=== PATIENT | male | born 1945 | race Caucasian/White ===

== ENCOUNTER 2018-02-11 05:51 | Inpatient (IN) | payer OTHER ==
[~2018-02-11] VITALS: Ht 172.7 cm; Wt 67.6 kg
[2018-02-11] MEDS ORDERED: BUPIVACAINE/PF-EPI 0.5% 1:200K ONE (06:24)
[2018-02-11] MEDS ORDERED: BACITRACIN 50,000 UNIT ONE (06:24)
[2018-02-11] MEDS ORDERED: THROMBIN 5,000 UNIT VIAL TP ONE (06:24)
[2018-02-11] MEDS ORDERED: LACTATED RINGERS 1,000 ML IV SCH (07:18)
[2018-02-11] MEDS ORDERED: LIDOCAINE-MPF 1%, 2ML INFIL ONE (07:30)
[2018-02-11 07:58] VITALS: BP 174/66
[2018-02-11] MEDS ORDERED: GABA400C PO (08:26)
[2018-02-11] MEDS ORDERED: VITAMIN B 12 (08:26)
[2018-02-11] MEDS ORDERED: TRAZ-136 PO (08:26)
[2018-02-11] MEDS ORDERED: ASPI-496 PO (08:26)
[2018-02-11] MEDS ORDERED: TAMS0.4C2 PO (08:26)
[2018-02-11] MEDS ORDERED: TOPI25TA32 PO (08:26)
[2018-02-11] MEDS ORDERED: IRON PO (08:26)
[2018-02-11] MEDS ORDERED: PANT20TA3 PO (08:26)
[2018-02-11] MEDS ORDERED: AMLO2.5T PO (08:26)
[2018-02-11] MEDS ORDERED: HYDR-3241 PO (08:26)
[2018-02-11] MEDS ORDERED: METO25TA35 PO (08:26)
[2018-02-11] MEDS ORDERED: FURO20TA3 PO (08:26)
[2018-02-11] MEDS ORDERED: [UNRECOGNIZED DRUG - OTHER] PO (08:26)
[2018-02-11] MEDS ORDERED: CLOP75TA52 PO (08:26)
[2018-02-11] MEDS ORDERED: FENTANYL PF 250 MCG/5ML ONE (09:16)
[2018-02-11] MEDS ORDERED: PROPOFOL 100 ML ONE (09:16)
[2018-02-11] MEDS ORDERED: MIDAZOLAM 1 MG/ML, 2ML ONE (09:16)
[2018-02-11] MEDS ORDERED: CEFAZOLIN 1,000 MG ONE ×2 (10:36)
[2018-02-11] MEDS ORDERED: ROCURONIUM 10MG/ML,5ML ONE (10:39)
[2018-02-11] MEDS ORDERED: OXYcodone 5 MG/5 ML ORAL.SOL UDC PO PRN (11:30)
[2018-02-11] MEDS ORDERED: LABETALOL 5MG/ML, 20ML IV PRN (11:30)
[2018-02-11] MEDS ORDERED: ONDANSETRON 2MG/ML, 2ML IV PRN ×2 (11:30→14:30)
[2018-02-11] MEDS ORDERED: ACETAMINOPHEN 325 MG TABLET PO PRN (11:30)
[2018-02-11] MEDS ORDERED: PROMETHAZINE 25 MG/ML, 1ML IV PRN (11:30)
[2018-02-11] MEDS ORDERED: hydrALAzine 20 MG/ML, 1ML IV PRN (11:30)
[2018-02-11] MEDS ORDERED: HYDROmorphone 1 MG/ML, 1ML IV PRN (11:30)
[2018-02-11] MEDS ORDERED: FENTANYL PF 100 MCG/2ML IV PRN (11:30)
[2018-02-11] MEDS ORDERED: MEPERIDINE/PF 25MG/0.5ML IVPush PRN (11:30)
[2018-02-11] MEDS ORDERED: ALBUTEROL/IPRATROPIUM 2.5MG/0.5MG, 3 ML NPPB PRN (11:30)
[2018-02-11] MEDS ORDERED: PROPOFOL 10 MG/ML, 20ML ONE (11:43)
[2018-02-11] MEDS ORDERED: DEXAMETHASONE 4 MG/ML, 1ML ONE ×2 (11:43)
[2018-02-11] MEDS ORDERED: ONDANSETRON 2MG/ML, 2ML ONE (11:43)
[2018-02-11] MEDS ORDERED: NEOSPORIN OINT, 15GM ONE (12:15)
[2018-02-11] MEDS ORDERED: OXYcodone 5 MG/5 ML ORAL.SOL UDC ONE (13:06)
[2018-02-11] MEDS ORDERED: FENTANYL PF 100 MCG/2ML ONE (13:06)
[2018-02-11] MEDS ORDERED: ACETAMINOPHEN 650 MG/20.3 ML UDC ONE (13:06)
[2018-02-11 14:10] VITALS: BP 147/61
[2018-02-11] MEDS ORDERED: DIPHENHYDRAMINE 50 MG/ML, 1ML IVPush PRN (14:30)
[2018-02-11] MEDS ORDERED: BISACODYL 10 MG SUPP PR PRN (14:30)
[2018-02-11] MEDS ORDERED: DIPHENHYDRAMINE 50 MG CAPSULE PO PRN (14:30)
[2018-02-11] MEDS ORDERED: MAGNESIUM HYDROXIDE 8%, 30ML UDC PO PRN (14:30)
[2018-02-11] MEDS ORDERED: DIPHENHYDRAMINE 50 MG/ML, 1ML IM PRN (14:30)
[2018-02-11] MEDS ORDERED: METHOCARBAMOL 1,000 MG in DEXTROSE 5% 100 ML IV ONE (14:30)
[2018-02-11] MEDS ORDERED: PROMETHAZINE 25 MG/ML, 1ML IM PRN (14:30)
[2018-02-11] MEDS ORDERED: morphine SULFATE 10 MG/ML, 1ML IV PRN (14:30)
[2018-02-11] MEDS: NS + 20MEQ KCL 1,000 ML IV SCH (15:16)
[2018-02-11] MEDS: GABAPENTIN 400 MG CAPSULE PO SCH ×2 (18:00→20:15)
[2018-02-11] MEDS: CEFAZOLIN PMX 2GM/50ML 50 ML IVPB SCH (18:15)
[2018-02-11 19:00] VITALS: BP 164/60
[2018-02-11] MEDS ORDERED: LOPERAMIDE 2 MG CAPSULE PO PRN (19:00)
[2018-02-11] MEDS: HYDROcodone/APAP 10/325 MG TABLET PO PRN ×2 (20:15→22:57)
[2018-02-11] MEDS: TRAZODONE 50MG TABLET PO SCH (20:16)
[2018-02-11] MEDS: METHOCARBAMOL 750 MG in DEXTROSE 5% 100 ML IV SCH (22:34)
[2018-02-12] VITALS: BP 185/60
[2018-02-12] MEDS: CEFAZOLIN PMX 2GM/50ML 50 ML IVPB SCH (02:03)
[2018-02-12 03:16] VITALS: BP 183/69
[2018-02-12 05:18] LABS: MEAN CORPUSCULAR HEMOGLOBIN 26.7 pg (27.5-34.5); MEAN CORPUSCULAR HGB CONC 32.4 g/dL (33.2-36.2); MEAN CORPUSCULAR VOLUME 82.5 fL (81-97); MEAN PLATELET VOLUME 6.8 fL (7.4-10.4); PLATELET COUNT 219 x10^3/uL (130-400); RED BLOOD COUNT 3.15 x10^6/uL (4.38-5.82); RED CELL DISTRIBUTION WIDTH 20.4 % (9.4-14.8)
[2018-02-12 05:41] LABS: MD YES
[2018-02-12 05:44] LABS: BAND#(MANUAL) 0.23 x10^3/uL; BANDS%(MANUAL) 3 % (0-7); LYMPH#(MANUAL) 0.75 x10^3/uL (1-3.4); LYMPHS% (MANUAL) 10 % (22-44); MONOS#(MANUAL) 0.15 x10^3/uL (0.3-2.7); MONOS% (MANUAL) 2 % (2-9); SEG#(MANUAL) 6.38 x10^3/uL (1.8-6.8); SEGS% (MANUAL) 85 % (42-75)
[2018-02-12 05:45] LABS: <PLATELET ESTIMATE> ADEQUATE; <PLT MORPHOLOGY> NORMAL PLT MORPH; ANISOCYTOSIS 1+; POLYCHROMASIA 1+
[2018-02-12 05:48] LABS: HYPOCHROMIA 1+; MICROCYTOSIS 1+
[2018-02-12] MEDS: GABAPENTIN 400 MG CAPSULE PO SCH ×5 (06:26→21:34)
[2018-02-12] MEDS: METHOCARBAMOL 750 MG in DEXTROSE 5% 100 ML IV SCH (06:30)
[2018-02-12] MEDS: PANTOPRAZOLE 20MG TABLET PO SCH (08:14)
[2018-02-12] MEDS: NS + 20MEQ KCL 1,000 ML IV SCH ×2 (08:14→17:52)
[2018-02-12 08:35] VITALS: BP 179/61
[2018-02-12] MEDS: SENNA/DOCUSATE TABLET PO SCH (09:00)
[2018-02-12] MEDS: TAMSULOSIN 0.4 MG CAP.ER.24H PO SCH (09:09)
[2018-02-12] MEDS: OXYcodone/APAP 10/325MG TABLET PO PRN ×3 (09:09→19:09)
[2018-02-12] MEDS: CYANOCOBALAMIN 1,000 MCG TABLET PO SCH (09:09)
[2018-02-12] MEDS: AMLODIPINE 2.5 MG TABLET PO SCH (09:10)
[2018-02-12] MEDS: FUROSEMIDE 20 MG TABLET PO SCH (09:10)
[2018-02-12] MEDS: METOPROLOL TARTRATE 25 MG TABLET PO SCH (09:10)
[2018-02-12] MEDS: TOPIRAMATE 25 MG TABLET PO SCH (09:10)
[2018-02-12 13:28] VITALS: BP 156/52
[2018-02-12 20:00] VITALS: BP 154/52
[2018-02-12] MEDS: TRAZODONE 50MG TABLET PO SCH (21:35)
[2018-02-13 02:00] VITALS: BP 176/60
[2018-02-13 02:13] VITALS: BP 164/70
[2018-02-13] MEDS: OXYcodone/APAP 10/325MG TABLET PO PRN (04:38)
[2018-02-13 05:36] LABS: MEAN CORPUSCULAR HGB CONC 32.7 g/dL (33.2-36.2); MEAN CORPUSCULAR VOLUME 82.5 fL (81-97); MEAN PLATELET VOLUME 6.8 fL (7.4-10.4); PLATELET COUNT 236 x10^3/uL (130-400); RED BLOOD COUNT 3.34 x10^6/uL (4.38-5.82); RED CELL DISTRIBUTION WIDTH 20.6 % (9.4-14.8)
[2018-02-13] MEDS: GABAPENTIN 400 MG CAPSULE PO SCH ×5 (06:01→20:13)
[2018-02-13] MEDS: NS + 20MEQ KCL 1,000 ML IV SCH (06:01)
[2018-02-13 06:46] VITALS: BP 173/61
[2018-02-13 07:18] LABS: MD YES
[2018-02-13 07:37] LABS: BAND#(MANUAL) 0.09 x10^3/uL; BANDS%(MANUAL) 1 % (0-7); MONOS#(MANUAL) 0.77 x10^3/uL (0.3-2.7); MONOS% (MANUAL) 9 % (2-9)
[2018-02-13 07:38] LABS: ANISOCYTOSIS 1+; LYMPH#(MANUAL) 1.19 x10^3/uL (1-3.4); LYMPHS% (MANUAL) 14 % (22-44); POLYCHROMASIA 1+; SEG#(MANUAL) 6.46 x10^3/uL (1.8-6.8); SEGS% (MANUAL) 76 % (42-75)
[2018-02-13 07:39] LABS: <PLATELET ESTIMATE> ADEQUATE; <PLT MORPHOLOGY> NORMAL PLT MORPH; HYPOCHROMIA 1+
[2018-02-13 07:40] LABS: TOXIC GRAN 1+
[2018-02-13] MEDS: CYANOCOBALAMIN 1,000 MCG TABLET PO SCH (09:00)
[2018-02-13] MEDS: DIAZEPAM 2 MG TABLET PO SCH ×2 (09:30→17:30)
[2018-02-13] MEDS ORDERED: OXYcodone/APAP 10/325MG TABLET PO PRN (09:34)
[2018-02-13] MEDS: TOPIRAMATE 25 MG TABLET PO SCH (09:44)
[2018-02-13] MEDS: FUROSEMIDE 20 MG TABLET PO SCH (09:44)
[2018-02-13] MEDS: TAMSULOSIN 0.4 MG CAP.ER.24H PO SCH (09:44)
[2018-02-13] MEDS: METOPROLOL TARTRATE 25 MG TABLET PO SCH (09:44)
[2018-02-13] MEDS: SENNA/DOCUSATE TABLET PO SCH (09:45)
[2018-02-13] MEDS: AMLODIPINE 2.5 MG TABLET PO SCH (09:45)
[2018-02-13] MEDS: PANTOPRAZOLE 20MG TABLET PO SCH (09:45)
[2018-02-13 12:41] VITALS: BP 187/67
[2018-02-13 14:51] VITALS: BP 173/62
[2018-02-13] MEDS ORDERED: ALBUTEROL/IPRATROPIUM 2.5MG/0.5MG, 3 ML NPPB PRN (18:30)
[2018-02-13] MEDS: TRAZODONE 50MG TABLET PO SCH (19:35)
[2018-02-13 19:37] VITALS: BP 151/55
[2018-02-13] MEDS: LEVOFLOXACIN 500 MG TABLET PO SCH (20:13)
[2018-02-13] MEDS ORDERED: CEFTRIAXONE 2 GM in SODIUM CHLORIDE 0.9% 50 ML IV SCH (21:00)
[2018-02-13] MEDS ORDERED: METHOCARBAMOL 750 MG TABLET PO SCH (22:30)
[2018-02-13] MEDS: OXYcodone/APAP 5/325MG TABLET PO PRN (23:58)
[2018-02-14 00:08] VITALS: BP 164/59
[2018-02-14] MEDS: DIAZEPAM 2 MG TABLET PO SCH ×3 (00:43→17:55)
[2018-02-14 05:16] LABS: BASOPHILS % (AUTO) 0 % (0-1); EOSINOPHILS # (AUTO) 0.11 x10^3/uL (0-0.4); EOSINOPHILS % (AUTO) 1 % (1-7); LYMPHOCYTES # (AUTO) 0.85 x10^3/uL (1-3.4); LYMPHOCYTES % (AUTO) 10 % (22-44); MD NO; MEAN CORPUSCULAR HEMOGLOBIN 26.4 pg (27.5-34.5); MEAN CORPUSCULAR HGB CONC 32.3 g/dL (33.2-36.2); MEAN CORPUSCULAR VOLUME 81.6 fL (81-97); MEAN PLATELET VOLUME 6.9 fL (7.4-10.4); MONOCYTES % (AUTO) 9 % (2-9); NEUTROPHILS # (AUTO) 7.04 x10^3/uL (1.8-6.8); NEUTROPHILS % (AUTO) 80 % (42-75); PLATELET COUNT 211 x10^3/uL (130-400); RED BLOOD COUNT 3.44 x10^6/uL (4.38-5.82); RED CELL DISTRIBUTION WIDTH 20.7 % (9.4-14.8)
[2018-02-14] MEDS: OXYcodone/APAP 5/325MG TABLET PO PRN ×3 (05:37→20:23)
[2018-02-14] MEDS: GABAPENTIN 400 MG CAPSULE PO SCH ×5 (05:37→20:24)
[2018-02-14 06:47] VITALS: BP 174/64
[2018-02-14] MEDS: METOPROLOL TARTRATE 25 MG TABLET PO SCH (08:33)
[2018-02-14] MEDS: SENNA/DOCUSATE TABLET PO SCH (08:33)
[2018-02-14] MEDS: TAMSULOSIN 0.4 MG CAP.ER.24H PO SCH (08:33)
[2018-02-14] MEDS: AMLODIPINE 2.5 MG TABLET PO SCH (08:33)
[2018-02-14] MEDS: TOPIRAMATE 25 MG TABLET PO SCH (08:33)
[2018-02-14] MEDS: PANTOPRAZOLE 20MG TABLET PO SCH (08:33)
[2018-02-14] MEDS: CYANOCOBALAMIN 1,000 MCG TABLET PO SCH (08:34)
[2018-02-14] MEDS: MAGNESIUM HYDROXIDE 8%, 30ML UDC PO SCH (08:35)
[2018-02-14] MEDS: FUROSEMIDE 20 MG TABLET PO SCH (08:39)
[2018-02-14 11:11] LABS: ANION GAP 9 mmol/L (5-15); CALCIUM 8.5 mg/dL (8.5-10.1); CHLORIDE 102 mmol/L (98-107); CREATININE 1.23 mg/dL (0.7-1.3)
[2018-02-14 14:04] VITALS: BP 134/54
[2018-02-14 18:48] VITALS: BP 134/52
[2018-02-14] MEDS: TRAZODONE 50MG TABLET PO SCH (20:24)
[2018-02-14] MEDS: LEVOFLOXACIN 500 MG TABLET PO SCH (20:24)
[2018-02-15 00:18] VITALS: BP 144/75
[2018-02-15] MEDS: DIAZEPAM 2 MG TABLET PO SCH ×2 (01:17→09:30)
[2018-02-15] MEDS: OXYcodone/APAP 5/325MG TABLET PO PRN ×3 (01:17→08:07)
[2018-02-15 05:35] LABS: BASOPHILS % (AUTO) 0 % (0-1); EOSINOPHILS # (AUTO) 0.17 x10^3/uL (0-0.4); EOSINOPHILS % (AUTO) 2 % (1-7); LYMPHOCYTES # (AUTO) 1.06 x10^3/uL (1-3.4); LYMPHOCYTES % (AUTO) 14 % (22-44); MD NO; MEAN CORPUSCULAR HEMOGLOBIN 26.5 pg (27.5-34.5); MEAN CORPUSCULAR HGB CONC 32.7 g/dL (33.2-36.2); MEAN CORPUSCULAR VOLUME 81.1 fL (81-97); MEAN PLATELET VOLUME 7.2 fL (7.4-10.4); MONOCYTES # (AUTO) 0.63 x10^3/uL (0.2-0.8); MONOCYTES % (AUTO) 8 % (2-9); NEUTROPHILS # (AUTO) 5.73 x10^3/uL (1.8-6.8); NEUTROPHILS % (AUTO) 76 % (42-75); PLATELET COUNT 216 x10^3/uL (130-400); RED BLOOD COUNT 3.27 x10^6/uL (4.38-5.82); RED CELL DISTRIBUTION WIDTH 19.7 % (9.4-14.8)
[2018-02-15] MEDS: GABAPENTIN 400 MG CAPSULE PO SCH ×2 (05:43→10:55)
[2018-02-15 06:35] VITALS: BP 134/64
[2018-02-15] MEDS ORDERED: FUROSEMIDE 20 MG/2 ML IV ONE (07:00)
[2018-02-15] MEDS: AMLODIPINE 2.5 MG TABLET PO SCH (08:07)
[2018-02-15] MEDS: PANTOPRAZOLE 20MG TABLET PO SCH (08:07)
[2018-02-15] MEDS: SENNA/DOCUSATE TABLET PO SCH (08:07)
[2018-02-15] MEDS: TAMSULOSIN 0.4 MG CAP.ER.24H PO SCH (08:08)
[2018-02-15] MEDS: TOPIRAMATE 25 MG TABLET PO SCH (08:08)
[2018-02-15] MEDS: METOPROLOL TARTRATE 25 MG TABLET PO SCH (08:08)
[2018-02-15] MEDS: LEVOFLOXACIN 500 MG TABLET PO SCH (08:09)
[2018-02-15] MEDS: FUROSEMIDE 20 MG TABLET PO SCH (08:09)
[2018-02-15] MEDS: CYANOCOBALAMIN 1,000 MCG TABLET PO SCH (08:10)
[2018-02-15] MEDS: MAGNESIUM HYDROXIDE 8%, 30ML UDC PO SCH (08:10)
[2018-02-15] MEDS ORDERED: ENOXAPARIN 30 MG/0.3 ML SQ SCH (09:00)
[2018-02-15] MEDS ORDERED: OXYC-302 PO (09:56)
[2018-02-15] MEDS ORDERED: TIZA2CAP2 PO (09:59)
[2018-02-15] MEDS ORDERED: DOCU-131 PO (10:12)
[2018-02-15] MEDS ORDERED: ONDA4TAB7 PO (10:12)
[2018-02-15] MEDS ORDERED: BACITRACIN OINT 500U/GM, 15 GM TP PRN (11:30)
== END 2018-02-15 11:40 | disposition home or self-care (01) | DRG 471 ==
LOC: ORIP 05:51 → 4NOR 14:02
PROVIDERS: ADMIT Neurological Surgery; ATTEND Internal Medicine
PROC: 4A11X4G Monitoring of Peripheral Nervous Electrical Activity, Intraoperative, External Approach (ICD-10-PCS; 2018-02-11)
PROC: 0RG20J1 Fusion of 2 or more Cervical Vertebral Joints with Synthetic Substitute, Posterior Approach, Posterior Column, Open Approach (ICD-10-PCS; principal; 2018-02-11 10:00)
DX: M48.02 Spinal stenosis, cervical region (principal); J96.00 Acute respiratory failure, unspecified whether with hypoxia or hypercapnia; G95.9 Disease of spinal cord, unspecified; J44.0 Chronic obstructive pulmonary disease with (acute) lower respiratory infection; J44.1 Chronic obstructive pulmonary disease with (acute) exacerbation; M54.12 Radiculopathy, cervical region; F43.10 Post-traumatic stress disorder, unspecified; I25.10 Atherosclerotic heart disease of native coronary artery without angina pectoris; D64.9 Anemia, unspecified; Z95.5 Presence of coronary angioplasty implant and graft; Z99.81 Dependence on supplemental oxygen; N18.3 Chronic kidney disease, stage 3 (moderate); I70.1 Atherosclerosis of renal artery; F17.210 Nicotine dependence, cigarettes, uncomplicated; Z88.0 Allergy status to penicillin; I12.9 Hypertensive chronic kidney disease with stage 1 through stage 4 chronic kidney disease, or unspecified chronic kidney disease
CPT/HCPCS: 36415; 71045; 71046; 72040; 80048; 82040; 83880; 85025; C1713; J0690; J0696; J1100; J1650; J2250; J2270; J2405; J2704; J3010; J3480; J3490; C1762; J2800; J7120

== ENCOUNTER 2020-11-10 05:27 | Inpatient (IN) | payer OTHER ==
[~2020-11-10] VITALS: Ht 160 cm; Wt 63.7 kg
[2020-11-10] VITALS (8 sets, daily range): BP systolic 127–168; BP diastolic 52–65
[~2020-11-10 05:27] MED LIST: AMLO2.5T5 PO; ASPI-496 PO; CLOP75TA52 PO; DOCU-131 PO; FURO20TA3 PO; GABA400C PO; HYDR-3241 PO; IRON PO; METO25TA35 PO; ONDA4TAB7 PO; OXYC1TAB12 PO; PANT20TA4 PO; TAMS0.4C2 PO; TIZA2CAP2 PO; TOPI25TA32 PO; TRAZ50TA66 PO; VITAMIN B 12; [UNRECOGNIZED DRUG - OTHER] PO
--- NOTE | 2020-11-10 05:29 | NUR ---
CODE CARDIAC ELFEGOD @ 2073 @1309 RECIEVED A CALL (FLAVIA) THAT ALL [employer] DOCS ARE ON THEIR WAY
--- NOTE | 2020-11-10 05:31 | NUR ---
CODE CARDIAC CANCELLED @9244
--- NOTE | 2020-11-10 05:40 | NUR ---
Pt arrives speaking full sentences, laughing and joking, no ST elevation on arrival. Given 50 fentenyl on arrival, asa 325 and ntg 0.4
[2020-11-10] MEDS ORDERED: FENTANYL PF 100 MCG/2ML ONE (05:46)
[2020-11-10 05:50] LABS: BASOPHILS % (AUTO) 3 % (0-1); EOSINOPHILS % (AUTO) 1 % (1-7); LYMPHOCYTES % (AUTO) 16 % (22-44); MEAN CORPUSCULAR HEMOGLOBIN 26.8 pg (27.5-34.5); MEAN CORPUSCULAR HGB CONC 31.9 g/dL (33.2-36.2); MEAN PLATELET VOLUME 6.3 fL (7.4-10.4); MONOCYTES % (AUTO) 10 % (2-9); NEUTROPHILS % (AUTO) 71 % (42-75); PLATELET COUNT 284 x10^3/uL (130-400); RED BLOOD COUNT 2.41 x10^6/uL (4.38-5.82); RED CELL DISTRIBUTION WIDTH 18.2 % (9.4-14.8)
--- NOTE | 2020-11-10 05:50 | NUR ---
C/o increasing in Left arm/chest pain. Verbal order dr duncan for 50 fentenyl IV. PCXR done. 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 Pt usually goes [facility] but due to code cardiac activation diverted here. Labs drawn and sent. Will continue to monitor. NSR no ectopy.
--- NOTE | 2020-11-10 05:52 | NUR ---
Right lower leg 2-3 plus pitting edema.
--- NOTE | 2020-11-10 05:56 | NUR ---
Pt reports having black stools every now and then with some blood. Reported to Dr Sagastume along with hbg. Set up for rectal. VSS.
[2020-11-10] MEDS ORDERED: FENTANYL PF 100 MCG/2ML IVPush ONE (06:00)
[2020-11-10] MEDS ORDERED: SODIUM CHLORIDE FLUSH 10ML SYR IVF ONE (06:00)
[2020-11-10] MEDS ORDERED: MORPHINE SULFATE 4 MG/ML, 1ML IVPush PRN (06:00)
[2020-11-10 06:01] LABS: ALBUMIN 3.1 g/dL (3.4-5.0); ANION GAP 6 mmol/L (5-15); CALCIUM 7.9 mg/dL (8.5-10.1); CHLORIDE 99 mmol/L (98-107); INTERNATIONAL NORMALIZED RATIO 1.03 (0.93-1.1)
--- NOTE | 2020-11-10 06:04 | NUR ---
Lab here for T/S, POC to transfuse. Pt with decrease in CP/arm pain since fentenyl. VSS, NSR no ectopy, no st elevation.
[2020-11-10 06:07] LABS: ALANINE AMINOTRANSFERASE 14 U/L (12-78); ALKALINE PHOSPHATASE 93 U/L (45-117); BILIRUBIN,TOTAL 0.4 mg/dL (0.2-1.0); CREATININE 0.86 mg/dL (0.7-1.3); TOTAL PROTEIN 6.3 g/dL (6.4-8.2); TROPONIN I 0.015 ng/mL (0.000-0.045)
--- NOTE | 2020-11-10 06:11 | NUR ---
Pt with grossly positive stool OB. Pt reports having hx of GIB in past. Pt has 2 large bore IV's. Plan to transfuse. Kailash fischer.
--- NOTE | 2020-11-10 06:23 | NUR ---
Moved with all belongings to room 17. Ultrasound here now.
--- NOTE | 2020-11-10 06:43 | NUR ---
Report to REGGIE Pineda.
--- NOTE | 2020-11-10 07:10 | NUR ---
PT OFF UNIT FOR IMAGING.
[2020-11-10] MEDS ORDERED: OMNIPAQUE 350 MG/ML, 100ML BOTTLE ONE (07:25)
--- NOTE | 2020-11-10 07:34 | NUR ---
PT BACK FROM CT. BLOOD REQUESTED FROM BLOOD BANK.
--- NOTE | 2020-11-10 08:01 | NUR ---
BLOOD INFUSING, ASSISTED PT TO [facility].
[2020-11-10] MEDS ORDERED: NICOTINE 14MG/24 HR PATCH.TD24 ONE (08:20)
[2020-11-10] MEDS ORDERED: NICOTINE 14MG/24 HR PATCH.TD24 TD ONE (08:30)
--- NOTE | 2020-11-10 08:58 | NUR ---
REPORT CALLED TO SANDHYA PAREDES.
[2020-11-10] MEDS ORDERED: CHLORHEXIDINE 15 ML UDC ONE (11:22)
[2020-11-10] MEDS ORDERED: IRON DEXTRAN IV PER PHARMACY IV ONE (11:30)
[2020-11-10] MEDS ORDERED: NITROGLYCERIN 0.4 MG/SPRAY SL PRN (11:30)
[2020-11-10] MEDS ORDERED: ONDANSETRON 2MG/ML, 2ML IVPush PRN (11:30)
[2020-11-10] MEDS ORDERED: DOCUSATE 100 MG CAPSULE PO PRN (11:30)
[2020-11-10] MEDS ORDERED: LABETALOL 5MG/ML, 20ML IVPush PRN (11:30)
[2020-11-10] MEDS ORDERED: IRON SUCROSE COMPLEX 100MG/5ML IV SCH (11:30)
[2020-11-10] MEDS ORDERED: PANTOPRAZOLE 40 MG IV IVPush SCH (11:30)
[2020-11-10] MEDS ORDERED: IRON DEXTRAN COMPLEX 25 MG in SODIUM CHLORIDE 0.9% 50 ML IV ONE (11:30)
[2020-11-10] MEDS ORDERED: NITROGLYCERIN 0.4 MG BOTTLE (25 TABS) SL PRN (11:30)
[2020-11-10] MEDS ORDERED: METHOCARBAMOL 500 MG TABLET PO PRN (11:30)
[2020-11-10] MEDS ORDERED: PANTOPRAZOLE 80 MG in SODIUM CHLORIDE 0.9% 50 ML IV ONE (12:00)
[2020-11-10] MEDS ORDERED: EPINEPHRINE 1 MG/ML, 1ML SQ PRN (12:00)
[2020-11-10] MEDS ORDERED: ZOLP5TAB2 PO (12:09)
[2020-11-10] MEDS ORDERED: ISOS30TA21 PO (12:09)
[2020-11-10] MEDS ORDERED: MELA3CAP2 PO (12:09)
[2020-11-10] MEDS ORDERED: IPRA4AER INH (12:09)
[2020-11-10] MEDS ORDERED: AMLO-210 PO (12:09)
[2020-11-10] MEDS ORDERED: CYPR4TAB36 PO (12:09)
[2020-11-10] MEDS ORDERED: BUDE3CAP15 PO (12:09)
[2020-11-10] MEDS ORDERED: BUDE10.2 INH (12:09)
[2020-11-10] MEDS ORDERED: GABA300C PO ×2 (12:09)
[2020-11-10] MEDS ORDERED: PROP60CA36 PO (12:09)
[2020-11-10] MEDS ORDERED: ACET325T26 PO (12:09)
[2020-11-10] MEDS ORDERED: HYDR-3567 PO (12:12)
[2020-11-10] MEDS ORDERED: BUDESONIDE MC SCH (13:00)
[2020-11-10] MEDS ORDERED: IRON DEXTRAN COMPLEX 1,600 MG in SODIUM CHLORIDE 0.9% 250 ML IV ONE (13:00)
[2020-11-10] MEDS ORDERED: HYDROmorphone 1 MG/ML, 1ML INJ IV PRN (14:00)
[2020-11-10] MEDS ORDERED: FUROSEMIDE 20 MG/2 ML IV ONE (14:00)
[2020-11-10 14:01] LABS: TROPONIN I 0.023 ng/mL (0.000-0.045)
[2020-11-10] MEDS: GABAPENTIN 300 MG CAPSULE PO SCH ×2 (14:58→21:45)
[2020-11-10] MEDS: HYDROcodone/APAP 10/325 MG TABLET PO PRN (14:59)
[2020-11-10] MEDS: PROPRANOLOL 20 MG TABLET PO SCH ×3 (15:00→21:44)
[2020-11-10] MEDS: AMLODIPINE 5 MG TABLET PO SCH (15:00)
[2020-11-10] MEDS: BUDESONIDE 3 MG CAP DR.ER PO SCH (15:01)
[2020-11-10] MEDS: PANTOPRAZOLE 80 MG in SODIUM CHLORIDE 0.9% 100 ML IV SCH (15:05)
[2020-11-10] MEDS: TAMSULOSIN 0.4 MG CAP.ER.24H PO SCH (15:08)
[2020-11-10] MEDS ORDERED: ALBUTEROL-IPRATROPIUM MDI INH INH SCH (16:00)
[2020-11-10] MEDS ORDERED: CYPROHEPTADINE 4 MG TABLET PO SCH (16:00)
[2020-11-10] MEDS ORDERED: ROPI0.5T4 PO (16:14)
[2020-11-10] MEDS: ROPINIROLE 0.5MG TABLET PO PRN (17:30)
[2020-11-10] MEDS ORDERED: ALBUTEROL/IPRATROPIUM 2.5MG/0.5MG, 3 ML ONE (17:53)
[2020-11-10] MEDS: LACTATED RINGERS 1,000 ML IV SCH (17:55)
[2020-11-10] MEDS ORDERED: ALBUTEROL HFA 90 MCG/SPRAY INH PRN (18:00)
[2020-11-10] MEDS: ALBUTEROL/IPRATROPIUM 2.5MG/0.5MG, 3 ML NPPB SCH (18:14)
[2020-11-10 20:36] LABS: TROPONIN I 0.022 ng/mL (0.000-0.045)
[2020-11-10] MEDS ORDERED: TRAZODONE 50MG TABLET PO SCH (21:00)
[2020-11-10] MEDS ORDERED: Symbicort 160-4.5 Mcg Inhaler HOMEINH SCH (21:00)
[2020-11-10] MEDS ORDERED: FAMOTIDINE 20 MG/2 ML IVPush SCH (21:00)
[2020-11-10] MEDS ORDERED: TRAZODONE 100MG TABLET PO PRN (22:30)
[2020-11-10] MEDS ORDERED: CYPROHEPTADINE 4 MG TABLET PO PRN (22:30)
[2020-11-11] MEDS: PANTOPRAZOLE 80 MG in SODIUM CHLORIDE 0.9% 100 ML IV SCH (01:52)
[2020-11-11 02:11] LABS: BASOPHILS % (AUTO) 2 % (0-1); EOSINOPHILS % (AUTO) 0 % (1-7); LYMPHOCYTES % (AUTO) 10 % (22-44); MEAN PLATELET VOLUME 6.6 fL (7.4-10.4); MONOCYTES % (AUTO) 8 % (2-9); NEUTROPHILS % (AUTO) 80 % (42-75); PLATELET COUNT 260 x10^3/uL (130-400); RED CELL DISTRIBUTION WIDTH 17.1 % (9.4-14.8)
[2020-11-11 02:16] LABS: ANION GAP 7 mmol/L (5-15); CALCIUM 8.3 mg/dL (8.5-10.1); CHLORIDE 103 mmol/L (98-107)
[2020-11-11] MEDS: ACETAMINOPHEN 325 MG TABLET PO PRN ×2 (02:37→22:42)
[2020-11-11 03:20] VITALS: BP 156/71
[2020-11-11] MEDS: HYDROcodone/APAP 10/325 MG TABLET PO PRN ×2 (05:16→20:36)
[2020-11-11] MEDS: ALBUTEROL/IPRATROPIUM 2.5MG/0.5MG, 3 ML NPPB SCH ×4 (06:56→19:57)
[2020-11-11 07:54] VITALS: BP 160/68
[2020-11-11] MEDS: ROPINIROLE 0.5MG TABLET PO PRN (08:30)
[2020-11-11] MEDS: AMLODIPINE 5 MG TABLET PO SCH (08:30)
[2020-11-11] MEDS: GABAPENTIN 300 MG CAPSULE PO SCH ×2 (08:30→20:36)
[2020-11-11] MEDS: PROPRANOLOL 20 MG TABLET PO SCH ×3 (08:31→20:35)
[2020-11-11] MEDS: BUDESONIDE 3 MG CAP DR.ER PO SCH (08:31)
[2020-11-11] MEDS: TAMSULOSIN 0.4 MG CAP.ER.24H PO SCH (08:32)
[2020-11-11] MEDS ORDERED: PROPOFOL 50 ML ONE (08:55)
[2020-11-11] MEDS ORDERED: CHLORHEXIDINE 15 ML UDC ONE (09:12)
[2020-11-11] MEDS ORDERED: DIPHENHYDRAMINE 50 MG/ML, 1ML IVPush PRN (09:30)
[2020-11-11] MEDS ORDERED: DIAZEPAM 5 MG/ML, 2ML IVPush PRN (09:30)
[2020-11-11] MEDS ORDERED: FENTANYL PF 100 MCG/2ML IV PRN (09:30)
[2020-11-11] MEDS ORDERED: PROMETHAZINE 25 MG/ML, 1ML IVPush PRN (09:30)
[2020-11-11] MEDS ORDERED: ONDANSETRON 2MG/ML, 2ML IVPush PRN (09:30)
[2020-11-11] MEDS ORDERED: LABETALOL 5MG/ML, 20ML IV PRN (09:30)
[2020-11-11] MEDS ORDERED: EPHEDRINE 50 MG/ML, 1ML IVPush PRN (09:30)
[2020-11-11 10:40] VITALS: BP 160/54
[2020-11-11] MEDS ORDERED: REGADENOSON 0.4 MG/5 ML SYRINGE ONE (11:09)
[2020-11-11 13:22] VITALS: BP 128/61
[2020-11-11] MEDS: LACTATED RINGERS 1,000 ML IV SCH (17:59)
[2020-11-11] MEDS: PANTOPRAZOLE 20MG TABLET PO SCH (18:02)
[2020-11-11 19:38] VITALS: BP 147/58
[2020-11-12 01:04] VITALS: BP 111/39
[2020-11-12] MEDS: ARTIFICIAL TEARS 15 DROP/ML BOTTLE EACHEYE PRN (01:50)
[2020-11-12] MEDS: PANTOPRAZOLE 20MG TABLET PO SCH ×2 (06:12→16:05)
[2020-11-12] MEDS: ALBUTEROL/IPRATROPIUM 2.5MG/0.5MG, 3 ML NPPB SCH ×4 (07:00→20:30)
[2020-11-12] MEDS ORDERED: FUROSEMIDE 40 MG/4 ML IV ONE ×2 (07:30→11:30)
[2020-11-12] MEDS: BUDESONIDE 3 MG CAP DR.ER PO SCH (09:00)
[2020-11-12] MEDS ORDERED: SODIUM CHLORIDE 0.9% 250 ML IV ONE (11:30)
[2020-11-12] MEDS: AMLODIPINE 5 MG TABLET PO SCH (11:32)
[2020-11-12] MEDS: TAMSULOSIN 0.4 MG CAP.ER.24H PO SCH (11:33)
[2020-11-12] MEDS: GABAPENTIN 300 MG CAPSULE PO SCH ×2 (11:33→19:58)
[2020-11-12] MEDS: PROPRANOLOL 20 MG TABLET PO SCH ×3 (11:34→19:58)
[2020-11-12] MEDS: ISOSORBIDE MONONITRATE ER 30 MG TABLET PO SCH (11:37)
[2020-11-12 12:31] VITALS: BP 117/47
[2020-11-12 14:30] VITALS: BP 121/50
[2020-11-12 14:33] VITALS: BP 121/50
[2020-11-12] MEDS ORDERED: FUROSEMIDE 40 MG/4 ML ONE (16:01)
[2020-11-12] MEDS: DOXYCYCLINE 100 MG in DEXTROSE 5% 250 ML IV SCH (17:40)
[2020-11-12 19:10] VITALS: BP 136/60
[2020-11-12] MEDS: SIMVASTATIN 40 MG TABLET PO SCH ×2 (19:58→20:00)
[2020-11-13 01:51] VITALS: BP 129/56
[2020-11-13] MEDS: PANTOPRAZOLE 20MG TABLET PO SCH ×2 (04:20→17:19)
[2020-11-13] MEDS: HYDROcodone/APAP 10/325 MG TABLET PO PRN (04:23)
[2020-11-13] MEDS: DOXYCYCLINE 100 MG in DEXTROSE 5% 250 ML IV SCH ×2 (04:23→17:22)
[2020-11-13] MEDS: ROPINIROLE 0.5MG TABLET PO PRN (04:23)
[2020-11-13 05:38] LABS: BASOPHILS % (AUTO) 2 % (0-1); EOSINOPHILS % (AUTO) 1 % (1-7); LYMPHOCYTES % (AUTO) 16 % (22-44); MEAN CORPUSCULAR HEMOGLOBIN 28.1 pg (27.5-34.5); MEAN CORPUSCULAR HGB CONC 33.3 g/dL (33.2-36.2); MONOCYTES % (AUTO) 13 % (2-9); NEUTROPHILS % (AUTO) 68 % (42-75); PLATELET COUNT 258 x10^3/uL (130-400); RED BLOOD COUNT 3.07 x10^6/uL (4.38-5.82)
[2020-11-13 05:44] LABS: INTERNATIONAL NORMALIZED RATIO 1.05 (0.93-1.1); PROTHROMBIN TIME 11.2 Seconds (9.6-11.5)
[2020-11-13 06:34] LABS: CALCIUM 7.9 mg/dL (8.5-10.1); CHLORIDE 100 mmol/L (98-107)
[2020-11-13 06:37] LABS: ANION GAP 7 mmol/L (5-15); CREATININE 1.03 mg/dL (0.7-1.3)
[2020-11-13 07:00] VITALS: BP 151/63
[2020-11-13] MEDS: ALBUTEROL/IPRATROPIUM 2.5MG/0.5MG, 3 ML NPPB SCH ×4 (07:00→20:20)
[2020-11-13] MEDS: BUDESONIDE 3 MG CAP DR.ER PO SCH (08:56)
[2020-11-13] MEDS: ISOSORBIDE MONONITRATE ER 30 MG TABLET PO SCH (08:57)
[2020-11-13] MEDS: GABAPENTIN 300 MG CAPSULE PO SCH ×2 (08:57→20:39)
[2020-11-13] MEDS: TAMSULOSIN 0.4 MG CAP.ER.24H PO SCH (08:57)
[2020-11-13] MEDS: AMLODIPINE 5 MG TABLET PO SCH (08:57)
[2020-11-13] MEDS: PROPRANOLOL 20 MG TABLET PO SCH ×3 (08:57→20:39)
[2020-11-13] MEDS ORDERED: SODIUM CHLORIDE 0.9% 1,000 ML IV SCH ×2 (11:30→15:00)
[2020-11-13 14:01] VITALS: BP 122/47
[2020-11-13] MEDS ORDERED: TICAGRELOR 90 MG TABLET ONE (14:06)
[2020-11-13] MEDS ORDERED: VERAPAMIL 2.5 MG/ML, 2ML ONE (14:06)
[2020-11-13] MEDS ORDERED: FENTANYL PF 100 MCG/2ML ONE (14:06)
[2020-11-13] MEDS ORDERED: MIDAZOLAM 1 MG/ML, 5ML ONE (14:06)
[2020-11-13] MEDS ORDERED: BIVALIRUDIN 250 MG ONE (14:07)
[2020-11-13] MEDS ORDERED: HEPARIN 1,000 UNITS/ML, 10ML ONE (14:07)
[2020-11-13] MEDS ORDERED: LIDOCAINE 2%, 20ML ONE (14:07)
[2020-11-13] MEDS ORDERED: CLOPIDOGREL 300 MG TABLET ONE (14:49)
[2020-11-13 20:01] VITALS: BP 149/63
[2020-11-13 20:38] VITALS: BP 154/64
[2020-11-13] MEDS: SIMVASTATIN 40 MG TABLET PO SCH (20:39)
[2020-11-13] MEDS: ACETAMINOPHEN 325 MG TABLET PO PRN (22:11)
[2020-11-14 01:25] VITALS: BP 150/59
[2020-11-14] MEDS: DOXYCYCLINE 100 MG in DEXTROSE 5% 250 ML IV SCH (04:30)
[2020-11-14] MEDS: PANTOPRAZOLE 20MG TABLET PO SCH (05:18)
[2020-11-14] MEDS: ALBUTEROL/IPRATROPIUM 2.5MG/0.5MG, 3 ML NPPB SCH ×2 (07:28→09:05)
[2020-11-14 07:43] VITALS: BP 154/62
[2020-11-14 08:30] VITALS: BP 163/57
[2020-11-14] MEDS ORDERED: CLOPIDOGREL 75 MG TABLET PO SCH (09:00)
[2020-11-14] MEDS ORDERED: ASPIRIN 81 MG TABLET EC PO SCH (09:00)
[2020-11-14] MEDS: TAMSULOSIN 0.4 MG CAP.ER.24H PO SCH (09:20)
[2020-11-14] MEDS: GABAPENTIN 300 MG CAPSULE PO SCH (09:20)
[2020-11-14] MEDS: ISOSORBIDE MONONITRATE ER 30 MG TABLET PO SCH (09:20)
[2020-11-14] MEDS: BUDESONIDE 3 MG CAP DR.ER PO SCH (09:20)
[2020-11-14] MEDS: AMLODIPINE 5 MG TABLET PO SCH (09:20)
[2020-11-14] MEDS: ARTIFICIAL TEARS 15 DROP/ML BOTTLE EACHEYE PRN (09:20)
[2020-11-14] MEDS: PROPRANOLOL 20 MG TABLET PO SCH (09:23)
[2020-11-14] MEDS ORDERED: SIMV40TA20 PO (09:25)
[2020-11-14] MEDS ORDERED: DOXY100T PO (09:25)
== END 2020-11-14 11:47 | disposition home or self-care (01) | DRG 246 ==
LOC: ED 06:28 → 5SO 08:18 → DCLOUNGE 11-14 11:42
PROVIDERS: ADMIT Hospitalist; ATTEND Internal Medicine
PROC: 30233N1 Transfusion of Nonautologous Red Blood Cells into Peripheral Vein, Percutaneous Approach (ICD-10-PCS; principal; 2020-11-10)
PROC: 0W3P8ZZ Control Bleeding in Gastrointestinal Tract, Via Natural or Artificial Opening Endoscopic (ICD-10-PCS; 2020-11-11)
PROC: 027034Z Dilation of Coronary Artery, One Artery with Drug-eluting Intraluminal Device, Percutaneous Approach (ICD-10-PCS; 2020-11-13)
PROC: 4A023N7 Measurement of Cardiac Sampling and Pressure, Left Heart, Percutaneous Approach (ICD-10-PCS; 2020-11-13)
PROC: B2111ZZ Fluoroscopy of Multiple Coronary Arteries using Low Osmolar Contrast (ICD-10-PCS; 2020-11-13)
DX: I24.9 Acute ischemic heart disease, unspecified (principal); J18.9 Pneumonia, unspecified organism; K92.2 Gastrointestinal hemorrhage, unspecified; I13.0 Hypertensive heart and chronic kidney disease with heart failure and stage 1 through stage 4 chronic kidney disease, or unspecified chronic kidney disease; I50.30 Unspecified diastolic (congestive) heart failure; E87.1 Hypo-osmolality and hyponatremia; I45.2 Bifascicular block; I25.10 Atherosclerotic heart disease of native coronary artery without angina pectoris; R07.89 Other chest pain; Z20.822 Contact with and (suspected) exposure to COVID-19; I73.9 Peripheral vascular disease, unspecified; D50.9 Iron deficiency anemia, unspecified; I71.9 Aortic aneurysm of unspecified site, without rupture; K31.819 Angiodysplasia of stomach and duodenum without bleeding; K52.832 Lymphocytic colitis; D50.0 Iron deficiency anemia secondary to blood loss (chronic); F17.210 Nicotine dependence, cigarettes, uncomplicated; F43.10 Post-traumatic stress disorder, unspecified; G44.009 Cluster headache syndrome, unspecified, not intractable; I48.91 Unspecified atrial fibrillation; I70.1 Atherosclerosis of renal artery; J43.9 Emphysema, unspecified; N18.30 Chronic kidney disease, stage 3 unspecified; R79.89 Other specified abnormal findings of blood chemistry; Z82.49 Family history of ischemic heart disease and other diseases of the circulatory system; Z83.6 Family history of other diseases of the respiratory system; I25.2 Old myocardial infarction; Z79.02 Long term (current) use of antithrombotics/antiplatelets; Z89.519 Acquired absence of unspecified leg below knee; Z95.5 Presence of coronary angioplasty implant and graft; Z88.8 Allergy status to other drugs, medicaments and biological substances; Z88.0 Allergy status to penicillin; Z79.899 Other long term (current) drug therapy; Z79.891 Long term (current) use of opiate analgesic; Z79.01 Long term (current) use of anticoagulants; Z90.6 Acquired absence of other parts of urinary tract; Z88.5 Allergy status to narcotic agent; Q27.33 Arteriovenous malformation of digestive system vessel
CPT/HCPCS: 36415; 93017; 93458; 96374; 99291; C9600; J3490; 36430; 70450; 71045; 71275; 74177; 78452; 80048; 80053; 82728; 82962; 83540; 83550; 83735; 83880; 84100; 84466; 84484; 85014; 85018; 85025; 85610; 85730; 86850; 86900; 86923; 87635; 93005; 93306; 94640; 99156; C1769; C1894; G0378; J0583; J1644; J1750; J1940; J2250; J2405; J2704; J2785; J3010; J7060; Q9967; A9502; C1725; C1874; C1887; C9113; J7050; J7120; P9016